=== PATIENT | male | born 1995 | race Hispanic/Latino ===

== ENCOUNTER 2021-03-02 18:24 | Emergency (ER) | payer BC, SELFPAY ==
--- NOTE | ~2021-03-02 | XR_ITS ---
EXAMINATION: XR hand RT min 3V DATE: 03/02/2021 19:14 INDICATION: Right hand injury and pain. TECHNIQUE: 3 views of right hand were obtained. COMPARISON: None. FINDINGS: Bone alignment is normal. No fracture. Joint spaces are well maintained. IMPRESSION: 1. No fracture or radiopaque foreign body. Reviewed, dictated and finalized at location A.
[2021-03-02 19:09] VITALS: BP 121/68; PULSE 80; RESP 18; TEMP 36.4; O2SAT 98
[2021-03-02] MEDS: LIDOCAINE HCL 1% LOCAL INJ 20 ML VIAL 5 ML INFILTRATE (19:21)
--- NOTE | 2021-03-02 19:28 | ED.WOUNDLAC ---
HPI - Wound/Laceration General Chief Complaint: Wound/Laceration Stated Complaint: cut right hand Source: patient and RN notes reviewed Mode of arrival: ambulatory History of Present Illness HPI narrative: This is a 25-year-old male that presented to urgent care with trauma to his right pinky finger . According to patient he was at work and injured his hand on some glass. He does have a 1 cm laceration to the right pinky finger knuckle he does have full range of motion with pain pulses are palpable no neurovascular defect, probably refill less than 2 seconds sensations are positive. The patient denies SOB, CP, palpitation, extremity numbness, lightheadedness, dizziness, constipation, diarrhea, chills, or fever. Related Data Home Medications Medication Instructions Recorded Confirmed gabapentin 600 mg PO TID 03/02/21 03/02/21 Allergies Allergy/AdvReac Type Severity Reaction Status Date / Time No Known Allergies Allergy Verified 03/02/21 18:46 Review of Systems Review of Systems: A 14 organ system Review of Systems was performed and pertinent positives included in the HPI, otherwise remaining ROS is negative. REPLACED BY [facility] Family History Family History (Updated 03/02/21 @ 19:28 by RAMA Win) Other Family history non-contributory Exam Narrative: GENERAL: This is a well-nourished, well-developed patient, in no apparent distress. HEAD: normocephalic, atraumatic. EYES: PERRL. Sclera clear/white. Vision is grossly intact. EARS: External ears normal, auditory canals clear and without drainage, TMs normal without perforation. Hearing grossly intact. NOSE: External nose normal with no obvious nasal discharge, nares without redness, no rhinorrhea. THROAT: Mucous membranes moist, posterior pharynx clear. NECK: Neck supple, non-tender without lymphadenopathy, masses or thyromegaly. CARDIOVASCULAR: Regular rate and rhythm without murmurs, gallops, or rubs. RESPIRATORY: Clear to auscultation. Breath sounds equal bilaterally. No wheezes, rales, or rhonchi. GASTROINTESTINAL: Abdomen soft, non-tender, nondistended. Bowel sounds are active. No hepato-splenomegaly, or palpable masses. No guarding. SKIN: warm, intact with no suspicious lesions or rash, good texture and turgor. NEURO: awake, alert, and oriented to person, place and time. There were no obvious focal neurologic abnormalities. Steady gait EXTREMITIES: Normal range of motion. Right hand with open laceration approximately 1 cm in size. No calf tenderness. Negative Homans sign bilaterally. BACK: Nontender without deformity or crepitance. No flank tenderness. Course Course Emergency Course: Laceration suture x3 patient discharged with Parnell, ibuprofen Vital Signs Vital signs: Vital Signs Temperature 97.6 F 03/02/21 19:09 Pulse Rate 80 03/02/21 19:09 Respiratory Rate 18 03/02/21 19:09 Blood Pressure 121/68 03/02/21 19:09 Pulse Oximetry 98 03/02/21 19:09 Temperature 97.6 F 03/02/21 19:09 Pulse Rate 80 03/02/21 19:09 Respiratory Rate 18 03/02/21 19:09 Blood Pressure 121/68 03/02/21 19:09 Pulse Oximetry 98 03/02/21 19:09 Procedures Laceration Laceration 1: Date: 03/02/21 Time: 19:29 Site: hand (Right hand) Side (If applicable): right Size (cm): 1 Description: flap and clean Local Anesthetic: lidocaine 1% Amount of anesthesia used (mL): 3 Pre-repair: irrigated ====== Skin Level ====== Skin layer closed with: nylon Size (cm): 4-0 Number of sutures: 3 Technique: simple, interrupted ====== Subcutaneous Layer ====== Size: 4-0 ====== Muscle Layer ====== ====== Tendon Layer ====== MDM - Wound/Laceration Differential Diagnosis Differential diagnosis: Likely laceration, abscess and abrasion Imaging Data Attestation: I personally reviewed and interpreted this imaging study as follows: My impression: No fractu
--- NOTE | 2021-03-02 20:05 | PC.NURSE ---
discharged with dressing dry and intact.
== END 2021-03-02 19:55 | disposition home or self-care (01) ==
PROVIDERS: Emergency Provider Nurse Practitioner
DX: S61.411A Laceration without foreign body of right hand, initial encounter (principal); W25.XXXA Contact with sharp glass, initial encounter
CPT/HCPCS: 12001; 73130; 99213; G0463

== ENCOUNTER 2021-04-17 17:22 | Emergency (ER) | payer BC, SELFPAY ==
[2021-04-17 17:32] VITALS: BP 129/60; PULSE 101; RESP 16; TEMP 37.3; O2SAT 99
--- NOTE | 2021-04-17 18:13 | ED.UPPEXIN ---
HPI - Extremity Injury (Upper) General Chief Complaint: Extremity Injury, Upper Stated Complaint: right hand pain Source: patient and RN notes reviewed Mode of arrival: ambulatory Limitations: no limitations History of Present Illness HPI narrative: Lucien is a 26-year-old male patient who ambulated into the [facility]. Patient had a hand injury approximately 2 months ago had his right fifth finger laceration sutured at [facility]. Patient states the day after a stitch came out. Patient states there is a small bump on right knuckle. 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 Patient states that he can move all 5 fingers hand and wrist. Patient has been taking Aleve once daily. Patient had a negative right hand x-ray at last [facility] visit. Patient denies any injury to area since that time. Related Data Allergies Allergy/AdvReac Type Severity Reaction Status Date / Time No Known Allergies Allergy Verified 04/17/21 17:59 Review of Systems Review of Systems: CONSTITUTIONAL: Denies body aches, fever, chills, or sweats. EYES: Denies visual changes, redness, or discharge. ENT: Denies rhinorrhea, congestion, sore throat, or otalgia. CARDIOVASCULAR: Denies chest pain, palpitations, or edema. RESPIRATORY: Denies cough or dyspnea. GASTROINTESTINAL: Denies abdominal pain, nausea, vomiting, or diarrhea. GENITOURINARY: Denies dysuria or hematuria. SKIN: Denies rash, itching, or wounds + Bump on right fifth finger. MUSCULOSKELETAL: Denies back pain,+ right 5th finger pain. NEUROLOGIC: Denies headache, numbness, tingling, or weakness. PSYCH: Denies depression or anxiety. All systems reviewed & are unremarkable except as noted in HPI and below PMFSH Family History Family History Other Family history non-contributory Comments At time of signature, I have reviewed and agree with nursing past medical, surgical, social and family history unless otherwise noted. Please see nursing chart for further information. There is no relevant family history pertinent to the presenting complaint Exam Narrative: GENERAL: Well-appearing, well-nourished, and in no acute distress. HEAD: Normocephalic, atraumatic. EYES: EOMI. No redness or drainage. Conjunctivae normal. ENT: Mucous membranes pink and moist. Nares clear. No rhinorrhea. NECK: Normal AROM. Supple. No lymphadenopathy. MUSCULOSKELETAL: No bony tenderness.; right fifth finger 1c scar well approximated. EXTREMITIES: Normal range of motion. No edema. SKIN: Warm, dry, no rash. Capillary refill normal. Normal skin turgor. NEURO: No focal deficits. Alert and oriented x3. Gait steady. PSYCH: Normal affect. No signs of depression or anxiety. Course Vital Signs Vital signs: Vital Signs Temperature 37.3 C 04/17/21 17:32 Pulse Rate 101 H 04/17/21 17:32 Respiratory Rate 16 04/17/21 17:32 Blood Pressure 129/60 04/17/21 17:32 Pulse Oximetry 99 04/17/21 17:32 Temperature 37.3 C 04/17/21 17:32 Pulse Rate 101 H 04/17/21 17:32 Respiratory Rate 16 04/17/21 17:32 Blood Pressure 129/60 04/17/21 17:32 Pulse Oximetry 99 04/17/21 17:32 Reviewed MDM - Extremity Injury (Upper) Differential Diagnosis Differential diagnosis: Likely sprain and strain of wrist, finger sprain and dislocation of finger Medical Records Attestation: I reviewed the patient's medical records. Critical Care Time Critical Care Time Critical Care Time: No Discharge Plan Discharge Clinical Impression: Finger pain Qualifiers: Laterality: right Qualified Code(s): M79.644 - Pain in right finger(s) Patient Disposition: Home, Self-Care Condition: Stable Instructions: Antibiotic Form, Arthralgia (ED) Additional Instructions: May use Aleve twice daily. Follow up with primary care for further evaluation for continued pain in 10-14 days. Patient Language: [place] Follow-up/Referrals:
== END 2021-04-17 18:35 | disposition home or self-care (01) ==
PROVIDERS: Emergency Provider Nurse Practitioner Family
DX: M79.644 Pain in right finger(s) (principal)
CPT/HCPCS: 99211; G0463

== ENCOUNTER 2024-10-20 19:10 | Emergency (ER) | payer MEDICAID, SELFPAY ==
--- NOTE | ~2024-10-20 | XR_ITS ---
XR chest 1V portable Ordering provider: Jagdish Little MD History: 29 years Male with . Seizure . Comparison: None. FINDINGS: MEDIASTINUM: The cardiac silhouette is not enlarged. LUNGS: No infiltrates, effusions or pneumothorax. OTHER: No free air under the diaphragm. IMPRESSION: No acute cardiopulmonary pathology. Reviewed, dictated and finalized at location A.
[2024-10-20 19:10] VITALS: BP 118/86; PULSE 102; RESP 16; TEMP 37.1; O2SAT 95
[2024-10-20 19:22] VITALS: O2SAT 97
--- NOTE | 2024-10-20 19:23 | ECG_ITS ---
Test Date: 2024-10-20 19:26:51 Measurements Intervals [place] Rate: 98 P: 59 RI: 138 QRS: 60 QRSD: 100 T: 49 QT: 323 QTc: 414 Interpretive Statements SINUS RHYTHM INCOMPLETE RIGHT BUNDLE BRANCH BLOCK BORDERLINE ECG No previous ECG available for comparison Electronically Signed On 10-20-2024 20:23:45 CDT by Alec Tena D.O.
[2024-10-20 19:31] VITALS: BP 124/88; PULSE 94; RESP 14; O2SAT 96
--- OUTSIDE RECORDS SUMMARY | 2024-10-20 19:45 | XMS_ITS | Clinical Summary ---
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 Name Role Phone None, Provider MD Primary Care Provider Unavaila ble Allergies No known active allergies Medications No known medications Social History Tobacco Use Types Packs/Day Years Used Date Smoking Tobacco: Never Smokeless Tobacco: Never Tobacco Cessation:Counseling Given: Not Answered Alcohol Use Standard Drinks/Week Comments Yes 0 (1 standard drink = 0.6 oz pur e alcohol) socially Sex and Gender Information Value Date Recorded Sex Assigned at Not on file 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 Gender Identity Not on file Sexual Orientation Not on file Last Filed Vital Signs Vital Sign Reading Time Taken Comments Blood Pressure 132/72 06/20/2024 5:00 PM COILER OPERATOR Pulse 87 06/20/2024 4:10 PM COILER OPERATOR Temperature 36.8 C (98.3 F) 06/20/2024 4:10 PM COILER OPERATOR Respiratory Rate 18 06/20/2024 4:10 PM COILER OPERATOR Oxygen Saturation 98% 06/20/2024 5:00 PM COILER OPERATOR Inhaled Oxygen Concentration - - Weight 75.7 kg (166 lb 14.2 oz) 06/20/2024 4:10 PM COILER OPERATOR Height 172.7 cm (5' 8 ) 06/20/2024 4:10 PM COILER OPERATOR Body Mass Index 25.38 06/20/2024 4:10 PM COILER OPERATOR Plan of Treatment Health Maintenance Due Date Last Done Comments Annual Physical 1999 Hepatitis C 2014 DTaP, Tdap and Td Vaccines ( 1 - Tdap) 2015 Hepatitis B Vaccines (1 of 3 - 19+ 3-dose series) 2015 COVID-19 Vaccine (2023-2 5 season) 2024 HPV Vaccines Aged Out No longer eligi ble based on patient's age to complete this topic Meningococcal B Vaccine Aged Out No l onger eligible based on patient's age to complete this topic Meningococcal Vaccine Aged Out No deyanira frankie eligible based on patient's age to complete this topic Pneumococcal Vaccine: Pediat rics (0 to 5 Years) and At-Risk Patients (6 to 49 Years) Aged Out No longer eligible b ased on patient's age to complete this topic RSV Immunizations Under 20 Months Aged Out No longer eligible based on patient's age to complete this topic Care Teams Cylinder Machine Operator Pulp Drier Relationship Specialty Start Date End Date None, Provider, MD PCP - General UNKNOWN PHYSICIAN SPECIALTY 06/20/24
--- OUTSIDE RECORDS SUMMARY | 2024-10-20 19:45 | XMS_ITS | Clinical Summary ---
Author Organization [facility] Address [address] [place] [address] Care Team Providers Care Change Control Coordinator Name Role Phone Kobe Morgan MD Primary Care Provider Source Comments [facility],non-owned Affiliates and Associated Physician Practices is amultiple site organization consisting of ambulatory clinics and hospital sitesin [place], [place], [place] and [place]. This disclosure is being madepursuant to the Care Everywhere program and may not contain all information available regarding this patient. Last updated 18.[facility] Allergies No known active allergies Medications * Be aware that medications may not be up to date on this document. Alwaysverify current medications with the patient. ALBUTEROL IN Inhale by mouth as needed. Active ISOtretinoin (ACCUTANE) 30 MG capsuleIndicati ons:Acne Take 2 pills (60 mg) per day with food. [facility] # [id number] 60 Cap 0 4 Active Active Problems Patient Care Coordination No te Formatting of this note migh t be different from the original. Updated [facility], Rx sent 09/10/13; Monitor WBC, ROMEO/anger; standing orders at [facility], otherwise, enter CBC, CMP, Trigs if presents to [facility] Standing orders [facility] (f#[phone]); valid 03/14/14 - 09/11/14 Problem Noted Date Diagnosed Date Isotretinoin 08/06/2013 Overview (03/23/2014): [facility] # [id number]; last 4#'s SS; 1945; 150 mg/kg=9,345 08/06/13 non-fasting baseline labs WNL 08/12/13 Rx 30 mg; #30, complicated by ROMEO/feelings of anger 09/16/13 due to availability of 30 mg tabs, decrease to 20 mg , Rx #30 10/08/13 intended increase to 40 mg not received 10/19/13 Rx resent: 40 mg #40 11/05/13 NS Derm F/U 11/24/13 TG 194; changed to 20 mg/d Rx #30 01/04/14 RF 30 mg, #30 02/02/14 tolerating medication; RF 40 mg (02/14/14), #30 03/23/14 tolerating medication; cumulative dose = 3,900 mg; Rx 60 mg QD (30 mg tabs; #60) Acne 10/25/2011 Overview (08/06/2013): Onset age 13 with gradual worsening; comedones, papules, and pustules with tendency to scar 03/19/12 improved, not clear with tretinoin, BP, and doxy 50 mg BID w/inconsistent filling 03/19/12-02/06/13 per pharmacy 05/05/13 mild inflammatory > comedonal at face, using minimal topicals 08/06/13 worsening with cysts and early scars; S/P doxy/tretinoin/BP (30-40 gm/mo); iPLEDGE counselling + FH of severe acne Nevus 10/25/2011 Overview (05/05/2013): Onset in infancy with gradual change in color and shape; mildly pruritic; frequently irritated. 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 Gender Identity Not on file Sexual Orientation Not on file Last Filed Vital Signs Vital Sign Reading Time Taken Comments Blood Pressure 114/76 09/10/2013 12:11 PM CDT Pulse - - Temperature - - Respiratory Rate - - Oxygen Saturation - - Inhaled Oxygen Concentration - - Weight 62.5 kg (137 lb 12.6 oz) 03/23/2014 1:02 PM CDT Height 171.7 cm (5' 7.6 ) 03/23/2014 1:02 PM CDT Body Mass Index 21.2 03/23/2014 1:02 PM CDT Plan of Treatment Health Maintenance Due Date Last Done Comments HIV SCREENING 2011 HEPATITIS C SCREENING 04/03/2014 DTAP/TDAP/TD VACCINES (1 - Tdap) 2015 HEPATITIS B VACCINE (1 of 3 - 19+ 3-dose series) 2015 COVID-19 VACCINE (1 - 2023-2 5 season) 2024 DEPRESSION SCREENING 06/30/2024 INFLUENZA VACCINE (Season Ended) 2025 ZOSTER VACCINE (1 of 2) 2046 HIB VACCINE Aged Out No longer eligi ble based on patient's age to complete this topic HPV VACCINE Aged Out No longer eligi ble based on patient's age to complete this topic MENINGOCOCCAL (Group B) VACC INE SHARED DECISION-MAKING Aged Out No longer eligibl e based on patient's age to complete this topic MENINGOCOCCAL GROUPS A/C/Y/W VACCINE Aged Out No longer eligible b ased on patient's age to complete this topic PNEUMOCOCCAL VACCINE Aged Out No long er eligible based on patient's age to complete this topic Insurance [place] [facility] Care Teams Change Control Coordinator Relationship Specialty Start Date End Date Kobe Morgan [place] [address] [address] PCP - General 09/06/11
[2024-10-20] MEDS: SODIUM CHLORIDE 0.9% IV 2,000 ML 999 ML IV CONT (19:46)
[2024-10-20] MEDS: levETIRAcetam 1500MG/NACL100ML 1,500 MG/100 ML BAG 400 MG IVPB (19:46)
[2024-10-20 19:57] LABS: Basophils Percent Auto 0.4 % (0.2-1.2); Eosinophils Percent Auto 0.2 % (0-4.4); Hematocrit 45.6 % (42.0-52.0); Hemoglobin 15.2 g/dL (14.0-18.0); Immature Granulocyte Absolute 0.07 K/mm3 (0.00-0.031); Immature Granulocyte Percent A 0.7 % (0-0.5); Lymphocytes Absolute Auto 0.55 K/mm3 (0.9-3.2); Lymphocytes Percent Auto 5.5 % (18.3-44.2); Mean Corpuscular HGB Conc 33.3 g/dl (32-36); Mean Corpuscular Hemoglobin 29.1 pg (26-34); Mean Corpuscular Volume 87.4 fl (80-100); Mean Platelet Volume 11.4 fl (7.4-10.4); Monocytes Absolute Auto 0.5 K/mm3 (0.1-0.6); Monocytes Percent Auto 4.7 % (2.6-8.5); Neutrophils Absolute Auto 8.9 K/mm3 (1.3-6.7); Neutrophils Percent Auto 88.5 % (45.5-73.1); Platelet Count Result 209 k/mm3 (150-375); Red Blood Count 5.22 M/mm3 (4.6-6.20); Red Cell Distribution Width 12.8 % (11.5-14.5)
[2024-10-20 20:12] LABS: Albumin Level 4.6 g/dL (3.5-5.1); Alkaline Phosphatase 110 U/L (38-126); Anion Gap 14 mmol/L (4-12); Aspartate Amino Transferase 89 U/L (17-59); Bilirubin,Total 0.3 mg/dL (0.2-1.3); Blood Urea Nitrogen 7 mg/dL (9-20); Calcium 9.1 mg/dL (8.4-10.2); Carbon Dioxide 17 mmol/L (22-30); Chloride 105 mmol/L (98-107); Estimated CRCL calculation 91 ml/min; Estimated Glomerular Filt Rate > 60; Glucose 146 mg/dL (65-110); Potassium 3.9 mmol/L (3.4-5.0); Sodium 136 mmol/L (137-145)
[2024-10-20 20:21] LABS: Alanine Aminotransferase 85 U/L (6-50)
[2024-10-20 20:31] VITALS: BP 125/79; PULSE 82; RESP 18; O2SAT 98
[2024-10-20 20:32] LABS: Influenza A QL RT-PCR Negative (Negative); Influenza B QL RT-PCR Negative (Negative); RSV RNA, RT-PCR Negative (Negative); SARS-CoV-2 RNA PCR Negative (Negative)
[2024-10-20 20:39] LABS: Add Urine Microscopic? YES; Appearance Urine Cloudy (Clear); Bacteria Urine None Seen /hpf; Bilirubin Urine Negative (Negative); Blood Urine 2+ (Negative); Color Urine Yellow (Yellow); Glucose Urine UA Negative (Negative); Hyaline Casts Urine Present /lpf; Ketones Urine Trace mg/dL (Negative); Leukocyte Esterase Ur Negative LEU/UL (Negative); Nitrate Urine Negative (Negative); Non Pathogenic Casts >20; Protein Urine 2+ mg/dL (Negative); RBC Urine 0-2 /hpf (0-2); Squamous Epithelial Cell Urine None Seen /hpf (Few); Urobilinogen Urine 0.2 mg/dL (<2.0); WBC Urine 0-5 /hpf (0-3)
--- NOTE | 2024-10-20 20:53 | ED_ITS ---
HPI - General Adult General Chief complaint: Seizure Stated complaint: seizure Time Seen by Provider: 10/20/24 19:11 History of Present Illness HPI narrative: This is a 29-year-old male history of epilepsy presenting for seizure. Patient is supposed to be on Keppra, however he does not have health insurance. He has been off Keppra for several months. He had a brief grand mal seizure earlier today was brought to hospital. He is already back to his baseline mental status. Patient no complaints at this time. Related Data Allergies Allergy/AdvReac Type Severity Reaction Status Date / Time codeine Allergy Intermediate Rash Verified 10/20/24 19:23 [facility] Family History Family History Other Family history non-contributory Exam 2 Narrative: APPEARANCE: No apparent distress. Head: atraumatic. EYES: EOMI, NOSE: Atraumatic NECK: Trachea midline RESPIRATORY: No increased rate of breathing CTAB CARDIOVASCULAR: RRR, no peripheral edema ABDOMINAL: Non-distended soft nontender MUSCULOSKELETAl: No obvious deformities NEURO: Alert. Cranial nerves 2-12 grossly intact. Sensation light touch, motor function cerebellar function intact for 4 extremities. Gait exam was normal. SKIN:: Warm, dry. Normal color PSYCHIATRIC: Normal affect Course Vital Signs Vital signs: Vital Signs Temperature 98.7 F 10/20/24 19:10 Pulse Rate 102 H 10/20/24 19:10 Respiratory Rate 16 10/20/24 19:10 Blood Pressure 118/86 10/20/24 19:10 Pulse Oximetry 95 10/20/24 19:10 Oxygen Delivery Room Air 10/20/24 19:10 Temperature 98.7 F 10/20/24 19:10 Pulse Rate 102 H 10/20/24 19:10 Respiratory Rate 16 10/20/24 19:10 Blood Pressure 118/86 10/20/24 19:10 Pulse Oximetry 97 10/20/24 19:22 Oxygen Delivery Room Air 10/20/24 19:22 Medical Decision Making [facility] Narrative Medical decision making narrative: -Course: 29-year-old male history of seizure disorder not on any current medications presenting with a seizure. Patient was loaded with fluids. He was given IV Keppra. Laboratory studies and infectious workup were negative. Patient be discharged with prescription for Keppra. I discussed low-cost options such as good Rx with the patient and his . Given referral to a primary care physician at her local neurologist. Given return precautions. -DDX includes but is not limited to: Breakthrough seizure infection, noncompliance -Co-morbidities complicating care: Epilepsy Vital Signs Vital Signs: Vital Signs Temperature 98.7 F 10/20/24 19:10 Pulse Rate 102 H 10/20/24 19:10 Respiratory Rate 16 10/20/24 19:10 Blood Pressure 118/86 10/20/24 19:10 Pulse Oximetry 95 10/20/24 19:10 Oxygen Delivery Room Air 10/20/24 19:10 Temperature 98.7 F 10/20/24 19:10 Pulse Rate 102 H 10/20/24 19:10 Respiratory Rate 16 10/20/24 19:10 Blood Pressure 118/86 10/20/24 19:10 Pulse Oximetry 97 10/20/24 19:22 Oxygen Delivery Room Air 10/20/24 19:22 Lab Data 10/20/24 19:50 10/20/24 19:50 Labs: Lab Results 10/20/24 10/20/24 Range/Units 19:50 20:24 WBC 10.0 (4.5-10.0) K/mm3 RBC 5.22 (4.6-6.20) M/mm3 Hgb 15.2 (14.0-18.0) g/dL Hct 45.6 (42.0-52.0) % MCV 87.4 (80-100) fl MCH 29.1 (26-34) pg MCHC 33.3 (32-36) g/dl RDW 12.8 (11.5-14.5) % Plt Count 209 (150-375) k/mm3 MPV 11.4 H (7.4-10.4) fl Immature Gran % (Auto) 0.7 H (0-0.5) % Neut % (Auto) 88.5 H (45.5-73.1) % Lymph % (Auto) 5.5 L (18.3-44.2) % [place] % (Auto) 4.7 (2.6-8.5) % Eos % (Auto) 0.2 (0-4.4) % Baso % (Auto) 0.4 (0.2-1.2) % Lymph # (Auto) 0.55 L (0.9-3.2) K/mm3 [place] # (Auto) 0.5 (0.1-0.6) K/mm3 Eos # (Auto) 0.0 (0-0.3) K/mm3 Baso # (Auto) 0.0 (0.0-0.1) K/mm3 Abs Immat Gran (auto) 0.07 H (0.00-0.031) K/mm3 Absolute Neuts (auto) 8.9 H (1.3-6.7) K/mm3 Absolute Nucleated RBC 0.000 (0.0-0.012) K/mm3 Nucleated RBC % 0.0 (0.0-0.2) % Sodium 136 L (137-145) mmol/L Potassium 3.9 (3.4-5.0) mmol/L Chloride 105 (98-107) mmol/L Carbon Dioxide 17 L (22-30) mmol/L Anion Gap 14 H (4-12) mmol/L BUN 7 L (9-20) mg/dL Creatinine 1.03 (0.7-1.3) mg/dL Estim Creat Clear Calc 91 ml/min Estimated GFR > 60 (59 - ) Glucose 146 H (65-110) mg/dL Calcium 9.1 (8.4-10.2) mg/dL Total Bilirubin 0.3 (0.2-1.3) mg/dL AST 89 H (17-59) U/L ALT 85 H (6-50) U/L Alkaline Phosphatase 110 (38-126) U/L Total Protein 7.0 (6.3-8.2) g/dL Albumin 4.6 (3.5-5.1) g/dL Urine Color Yellow (Yellow) Urine Appearance Cloudy H (Clear) Urine pH 5.0 (5.0-9.0) Ur Specific [place] 1.020 (1.001-1.035) Urine Protein 2+ H (Negative) mg/dL Urine Glucose (UA) Negative (Negative) mg/dL Urine Ketones Trace H (Negative) mg/dL Ur Blood (Man) 2+ H (Negative) Urine Nitrate Negative (Negative) Urine Bilirubin Negative (Negative) Urine Urobilinogen 0.2 (<2.0) mg/dL Leukocyte Esterase Rfl Negative (Negative) NE/UL Urine RBC 0-2 (0-2) /hpf Urine WBC 0-5 (0-3) /hpf Ur Squamous Epith Cells None seen (Few) /hpf Urine Bacteria None seen /hpf Urine Casts >20 Hyaline Casts Present (None) /lpf Influenza A (RT-PCR) Negative (Negative) Influenza B (RT-PCR) Negative (Negative) RSV (RT-PCR) Negative (Negative) SARS-CoV-2 RNA (RT-PCR) Negative (Negative) Discharge Plan Discharge Clinical Impression: Epileptic seizure, Non compliance w medication regimen Patient Disposition: Home Condition: Stable Instructions: Antibiotic Form, Epilepsy (ED) Additional Instructions: Please take Keppra 500 mg b.i.d.. Use good Rx to cheaper [facility] for medication. Please follow-up with the primary care physician and neurologist listed below. Please continue seeking medical insurance as you have a chronic medical condition that will require monitoring. Return if you develop any new or worsening symptoms. Patient Language: Czech Prescriptions: New levetiracetam [Keppra] 500 mg tablet 500 mg PO BID Qty: 60 1RF Follow-up/Referrals: Derrick Long MD [Physician] - 1 Week (Establish pcp) Ozzy Briggs MD [Physician] - 1 Week (epilepsy) PHYSICIAN,SOCIAL MEDIA SENIOR ASSOCIATE [Primary Care Provider] -
[2024-10-20 21:00] VITALS: PULSE 107
[2024-10-20 21:12] VITALS: BP 124/77; PULSE 81; RESP 17; O2SAT 98
== END 2024-10-20 21:13 | disposition home or self-care (01) ==
PROVIDERS: Emergency Provider Emergency Medicine
DX: G40.909 Epilepsy, unspecified, not intractable, without status epilepticus (principal); Z91.148 Patient's other noncompliance with medication regimen for other reason
CPT/HCPCS: 36415; 71045; 80053; 81001; 85025; 87637; 93005; 96361; 96374; 99284; J1953; J7030